=== PATIENT | female | born 1965 | race Hispanic/Latino ===

== ENCOUNTER 2024-05-15 18:05 | Outpatient (CLI) | payer OTHER | END 2024-05-15 18:06 | disposition home or self-care (01) | LOC: NAV RAD 18:05 | PROVIDERS: ATTEND Family Medicine | DX: Z53.9 Procedure and treatment not carried out, unspecified reason (principal) | CPT/HCPCS: 72081 ==

== ENCOUNTER 2024-05-16 17:16 | Outpatient (CLI) | payer OTHER | END 2024-05-16 17:17 | disposition home or self-care (01) | LOC: NAV RAD 17:16 | PROVIDERS: ATTEND Family Medicine | DX: M41.129 Adolescent idiopathic scoliosis, site unspecified (principal); R59.0 Localized enlarged lymph nodes | CPT/HCPCS: 72081 ==